=== PATIENT | female | born 1990 | race Caucasian/White ===

== ENCOUNTER → 2017-10-11 | Outpatient (REF) | payer OTHER ==
[~2017-10-11] MED LIST: ACET50TA PO; IBUP-1022 PO; PRENATAL VITAMIN PO
[2017-10-11 17:59] LABS: BASO % 0.6 % (0.0-1.0); EOS % 0.4 % (0.0-3.0); LYMPH # 2.1 10^3/uL (1.5-6.5); LYMPH % 40.5 % (24.0-44.0); MEAN CORPUSCULAR HEMOGLOBIN 29.7 pg (27.0-33.0); MEAN CORPUSCULAR HGB CONC 31.8 g/dl (32.0-36.5); MEAN CORPUSCULAR VOLUME 93.5 fl (80.0-96.0); MONO # 0.2 10^3/uL (0.0-0.8); MONO % 4.3 % (0.0-5.0); NEUTROPHILS # 2.8 10^3/uL (1.8-7.7); NEUTROPHILS % 54.2 % (36.0-66.0); PLATELET COUNT, AUTOMATED 272 10^3/uL (150-450); RED CELL DISTRIBUTION WIDTH 12.7 % (11.5-14.5); WHITE BLOOD COUNT 5.1 10^3/uL (4.0-10.0)
[2017-10-11 18:21] LABS: ALBUMIN 3.7 GM/DL (3.2-5.2); ALBUMIN/GLOBULIN RATIO 1.09 (1.00-1.93); ALKALINE PHOSPHATASE 47 U/L (45-117); ALT/SGPT 14 U/L (12-78); ANION GAP 8 MEQ/L (8-16); AST/SGOT 10 U/L (7-37); BILIRUBIN,TOTAL 0.4 MG/DL (0.2-1.0); BLOOD UREA NITROGEN 10 MG/DL (7-18); CALCIUM LEVEL 8.6 MG/DL (8.5-10.1); CARBON DIOXIDE LEVEL 24 MEQ/L (21-32); CHLORIDE LEVEL 106 MEQ/L (98-107); CHOLESTEROL LEVEL 138 MG/DL (<200); CREATININE FOR GFR 0.72 MG/DL (0.55-1.02); GLOMERULAR FILTRATION RATE > 60.0 (>60); GLUCOSE, FASTING 81 MG/DL (70-105); POTASSIUM SERUM 4.4 MEQ/L (3.5-5.1); SODIUM LEVEL 138 MEQ/L (136-145); TOTAL PROTEIN 7.1 GM/DL (6.4-8.2); TRIGLYCERIDES LEVEL 93 MG/DL (<150)
== END ==
LOC: M SFHCSACK 08:10
PROVIDERS: ATTEND Physician Assistant
DX: Z00.00 Encounter for general adult medical examination without abnormal findings (principal); Z13.29 Encounter for screening for other suspected endocrine disorder; Z13.220 Encounter for screening for lipoid disorders; Z13.21 Encounter for screening for nutritional disorder

== ENCOUNTER → 2017-12-20 | Outpatient (REF) | payer OTHER | LOC: M SFHCSACK 11:46 | DX: J02.9 Acute pharyngitis, unspecified (principal) ==

== ENCOUNTER → 2018-05-29 | Outpatient (CLI) | payer BC, OTHER ==
[2018-05-29 10:50] LABS: BASO % 0.2 % (0.0-1.0); EOS % 0.5 % (0.0-3.0); HEMOGLOBIN 12.6 g/dl (12.0-15.5); IMMATURE GRANULOCYTE % 0.3 % (0-3.0); LYMPH # 2.1 10^3/uL (1.5-6.5); LYMPH % 32.3 % (24.0-44.0); MEAN CORPUSCULAR HEMOGLOBIN 30.5 pg (27.0-33.0); MEAN CORPUSCULAR HGB CONC 33.2 g/dl (32.0-36.5); MONO # 0.4 10^3/uL (0.0-0.8); MONO % 5.7 % (0.0-5.0); PLATELET COUNT, AUTOMATED 268 10^3/uL (150-450); RED BLOOD COUNT 4.13 10^6/uL (4.00-5.40); RED CELL DISTRIBUTION WIDTH 12.6 % (11.5-14.5); WHITE BLOOD COUNT 6.5 10^3/uL (4.0-10.0)
[2018-05-29 12:23] LABS: CHLAMYDIA DNA AMPLIFICATION NEGATIVE (NEGATIVE); GC DNA AMPLIFICATION NEGATIVE (NEGATIVE)
[2018-05-30 09:31] LABS: RUBELLA IgG QUALITATIVE IMMUNE (IMMUNE)
[2018-05-30 09:44] LABS: HBsAg Prenatal NEGATIVE (NEGATIVE)
[2018-05-30 10:00] LABS: HEPATITIS C VIRUS ABY INDEX 0.1 INDEX (<0.8)
[2018-05-30 10:01] LABS: HIV 1&2 SCREEN CENTAUR NEGATIVE (NEGATIVE)
== END ==
LOC: M SMT 08:54
DX: Z36.89 Encounter for other specified antenatal screening (principal); Z3A.08 8 weeks gestation of pregnancy
CPT/HCPCS: 86762

== ENCOUNTER → 2018-07-14 | Outpatient (CLI) | payer BC, OTHER | LOC: M RAD 12:56 | DX: Z34.82 Encounter for supervision of other normal pregnancy, second trimester (principal); Z36.89 Encounter for other specified antenatal screening; Z3A.18 18 weeks gestation of pregnancy | CPT/HCPCS: 76811 ==

== ENCOUNTER → 2018-09-08 | Outpatient (CLI) | payer BC, OTHER ==
[2018-09-08 13:46] LABS: HEMATOCRIT 35.2 % (36.0-47.0); HEMOGLOBIN 11.4 g/dl (12.0-15.5); MEAN CORPUSCULAR HEMOGLOBIN 30.2 pg (27.0-33.0); MEAN CORPUSCULAR HGB CONC 32.4 g/dl (32.0-36.5); MEAN CORPUSCULAR VOLUME 93.4 fl (80.0-96.0); PLATELET COUNT, AUTOMATED 229 10^3/uL (150-450); RED BLOOD COUNT 3.77 10^6/uL (4.00-5.40); RED CELL DISTRIBUTION WIDTH 12.9 % (11.5-14.5); WHITE BLOOD COUNT 9.3 10^3/uL (4.0-10.0)
[2018-09-08 14:14] LABS: GLUCOSE CHALLENGE TEST 1 HOUR 84 MG/DL (LESS THAN 140)
== END ==
LOC: M SMT 08:54
DX: Z34.82 Encounter for supervision of other normal pregnancy, second trimester (principal); Z36.89 Encounter for other specified antenatal screening
CPT/HCPCS: 82950

== ENCOUNTER → 2018-10-29 | Outpatient (CLI) | payer BC, OTHER | LOC: M RAD 15:30 | DX: Z34.83 Encounter for supervision of other normal pregnancy, third trimester (principal); Z87.59 Personal history of other complications of pregnancy, childbirth and the puerperium; Z3A.34 34 weeks gestation of pregnancy | CPT/HCPCS: 76816 ==

== ENCOUNTER → 2018-11-18 | Outpatient (REF) | payer OTHER ==
[~2018-11-18] MED LIST changes: -ACET50TA PO; +MAPA500T17 PO
== END ==
LOC: M LAB REF 17:22
PROVIDERS: ATTEND Advanced Practice Midwife
DX: Z34.83 Encounter for supervision of other normal pregnancy, third trimester (principal)

== ENCOUNTER 2018-12-13 21:00 | Inpatient (IN) | payer BC, OTHER ==
[~2018-12-13] VITALS: Ht 177.8 cm; Wt 93.1 kg
[~2018-12-13 21:00] MED LIST changes: -MAPA500T17 PO; +MAPA500T2 PO
[2018-12-13 21:22] VITALS: BP 113/74
[2018-12-13] MEDS: miSOPROStol 50 MCG 1/2 TAB (S0191) PO SCH (22:13)
[2018-12-13 22:17] LABS: HEMATOCRIT 33.1 % (36.0-47.0); HEMOGLOBIN 10.8 g/dl (12.0-15.5); MEAN CORPUSCULAR HEMOGLOBIN 28.6 pg (27.0-33.0); MEAN CORPUSCULAR HGB CONC 32.6 g/dl (32.0-36.5); MEAN CORPUSCULAR VOLUME 87.8 fl (80.0-96.0); PLATELET COUNT, AUTOMATED 211 10^3/uL (150-450); RED BLOOD COUNT 3.77 10^6/uL (4.00-5.40); WHITE BLOOD COUNT 11.1 10^3/uL (4.0-10.0)
[2018-12-13 22:24] VITALS: BP 112/75
[2018-12-13 23:22] VITALS: BP 118/76
[2018-12-14] VITALS (57 sets, daily range): BP systolic 93–168; BP diastolic 52–126
[2018-12-14] MEDS: miSOPROStol 50 MCG 1/2 TAB (S0191) PO SCH ×2 (02:04→06:37)
--- NOTE | 2018-12-14 08:24 | HPE ---
DATE OF ADMISSION: 12/13/2018 REASON FOR ADMISSION: Induction of labor. HISTORY OF PRESENT ILLNESS: Mrs. Cheney is a 28-year-old, 2, para 1, who presents at 40 weeks 2 days estimated gestational age by her last menstrual period, confirmed by first trimester ultrasound, here for induction of labor. Her course has been remarkable. She initiated care in the first trimester and has been appropriate throughout. PAST MEDICAL HISTORY: None. PAST SURGICAL HISTORY: None. PAST OBSTETRICAL HISTORY: She is 2, para 1. She had a term, uncomplicated vaginal delivery that she is proven to 6 pounds 9 ounces. MEDICATIONS: Include: - vitamins She has NO KNOWN DRUG ALLERGIES. SOCIAL HISTORY: She denies any alcohol, tobacco, or drug use during the . She is and lives at home with her and daughter. PHYSICAL EXAMINATION: Vital signs: Stable. She is afebrile. General appearance: Well-appearing, no acute distress. She has a category 1 rate tracing. Her lungs are clear to auscultation bilaterally. Cardiovascular: Heart regular rate and rhythm. Abdomen is gravid and nontender. Estimated weight (EFW) 3400 grams. Cervical exam: She was 2 cm dilated, 50% effaced, -3 station. LABS: Blood type is A positive. Antibody screen is negative. Rubella is immune. RPR is nonreactive. Hepatitis surface antigen is negative. HIV is negative. Hepatitis C is nonreactive. Chlamydia and gonorrhea screens were negative. She had a normal 1-hour Glucola. She is group B Streptococcus (GBS) negative. ASSESSMENT: 1. Mrs. Cheney is a 28-year-old, 2, para 1, at 40 weeks 2 days estimated gestational age, here for induction of labor. 2. Reassuring status. PLAN: 1. Admit to labor and delivery. Complete blood count (CBC), rapid plasma reagin (RPR), type and screen. 2. Patient has been thoroughly counseled in regards to induction of labor. I discussed the medication as well as procedures performed in labor and delivery. She has also been verbally consented for emergency surgery, blood products, anesthesia and desires to proceed with admission. 3. We will initiate induction in labor with misoprostol.
[2018-12-14] MEDS ORDERED: OXYTOCIN DRIP 30 UNITS in APPROPRIATE DILUENT 1 EA IV SCH ×2 (09:45→19:41)
[2018-12-14] MEDS: LR 1,000 ML IV SCH ×2 (10:40→12:48)
--- NOTE | 2018-12-14 15:57 | NUR ---
L&D Note - Pitocin resumed after prolong decel. Cat 1 tracing currently. vss AF gen: well apearing cx: 2/75/-2, AROM clear and FSE placed A/P: IOL at 40wks reassuring status -continue with pitocin IOL Alessia Ayoub MD
[2018-12-14] MEDS ORDERED: FENTANYL 2MCG/ML ROPIVACAINE 0.2% IN 0.9% NACL 100ML IVBAG As Ordered ONE (16:30)
[2018-12-14] MEDS ORDERED: EPIDURAL COMMENT XX SCH (17:00)
[2018-12-14] MEDS ORDERED: EPIDURAL/PCA KEYS XX PRN (17:00)
[2018-12-14] MEDS ORDERED: diphenhydrAMINE INJ 50MG/ML VIAL (J1200) IV PRN (17:00)
[2018-12-14] MEDS ORDERED: FENTANYL/ROPIVACAINE/NACL BAG 100 ML EPIDURAL SCH (17:00)
[2018-12-14] MEDS ORDERED: NALOXONE INJ 0.4 MG/1 ML VIAL (J2310) IV PRN (17:00)
[2018-12-14] MEDS ORDERED: ONDANSETRON 4MG/2ML VIAL (J2405) IV PRN ×2 (17:00→19:45)
[2018-12-14] MEDS ORDERED: REFRIGERATOR IV KEYS XX PRN (17:00)
[2018-12-14] MEDS ORDERED: LACTATED RINGER'S 1000 ML IV PRN (17:00)
[2018-12-14] MEDS ORDERED: ePHEDrine SULFATE 25 MG/5 ML(5MG/ML) SYRINGE IV PRN (17:00)
[2018-12-14] MEDS ORDERED: MOM 30ML SUSPENSION UDC PO PRN (19:45)
[2018-12-14] MEDS ORDERED: ANUSOL HC CREAM 30GM TOP PRN (19:45)
[2018-12-14] MEDS ORDERED: DIBUCAINE 1% OINTMENT 30GM TOP PRN (19:45)
[2018-12-14] MEDS ORDERED: MEASLES,MUMPS,RUBELLA VACCINE INJ (MMR-II) (90707) SC SCH (19:45)
[2018-12-14] MEDS ORDERED: ACETAMINOPHEN 500 MG TAB PO PRN (19:45)
[2018-12-14] MEDS ORDERED: METHYLERGONOVINE MALEATE 0.2 MG TAB PO PRN (19:45)
[2018-12-14] MEDS ORDERED: DOCUSATE SODIUM 100 MG CAP PO PRN (19:45)
[2018-12-14] MEDS ORDERED: RHOGAM 300 MCG (1500 IU) INJ (J2790) IM SCH (19:45)
[2018-12-14] MEDS: IBUPROFEN 800 MG TAB PO PRN (21:33)
[2018-12-15] MEDS: IBUPROFEN 800 MG TAB PO PRN ×2 (05:33→14:43)
[2018-12-15 05:37] VITALS: BP 123/73
--- NOTE | 2018-12-15 06:40 | DN ---
DATE OF DELIVERY: 12/14/2018 TIME OF : 1910 GENDER: Male : 8 and 10 WEIGHT: 3690 grams, 8 pounds 2 ounces. ANESTHESIA: Epidural. LACERATIONS: None. ESTIMATED BLOOD LOSS: 300 mL. COUNTS: Five laparotomy sponges accounted to prior to and after delivery. DELIVERY NOTE: On 12/14/2018 at 1911, Mrs. Cheney, a 28-year-old 2 now para 2 had a spontaneous vaginal delivery of a live born male infant, 8 and 10, weight was 3690 grams or 8 pounds 2 ounces. Head was delivered OA over intact perineum. There was a nuchal cord which was manually reduced followed by delivery of shoulders and corpus. Infant was handed to mother with good cry. Cord was then clamped times two. It was cut by the father of the baby under my direction. Placenta was then drained and delivered grossly intact. A premixed bag of 50 mL of normal saline with 30 units of Pitocin was then bolused along with uterine massage. The uterus was firm. On inspection, the cervix, vagina, perineum was grossly intact and hemostatic. Mother and baby recovering in stable condition. The couple decided to name their son
--- NOTE | 2018-12-15 07:41 | NUR ---
PPD#1 S: Doing well w/o complaints. Decreasing lochia, pain well control, + voids and + BF. O: vss, AF Gen: well appearing abd: soft, nttp with ff@u-1 A/P: PPD#1 s/p - stable -continue routine care -d/c plans for tomorrow Alessia Ayoub MD
[2018-12-15] MEDS: PRENATAL VITAMINS CHEWABLE TABLET PO SCH (09:00)
[2018-12-15 13:50] VITALS: BP 126/82
[2018-12-15 18:15] VITALS: BP 122/75
[2018-12-16 05:50] VITALS: BP 114/78
[2018-12-16] MEDS: PRENATAL VITAMINS CHEWABLE TABLET PO SCH (07:47)
[2018-12-16] MEDS: IBUPROFEN 800 MG TAB PO PRN (12:24)
== END 2018-12-16 14:40 | disposition home or self-care (01) | DRG 560 ==
LOC: M LDI 21:00 → M OBS 12-15 13:50
PROVIDERS: ADMIT Obstetrics & Gynecology; ATTEND Obstetrics & Gynecology
PROC: 3E0P7GC Introduction of Other Therapeutic Substance into Female Reproductive, Via Natural or Artificial Opening (ICD-10-PCS; 2018-12-13)
PROC: 10E0XZZ Delivery of Products of Conception, External Approach (ICD-10-PCS; principal; 2018-12-14)
DX: O48.0 Post-term pregnancy (principal); Z3A.40 40 weeks gestation of pregnancy; O69.81X0 Labor and delivery complicated by cord around neck, without compression, not applicable or unspecified; Z37.0 Single live birth

== ENCOUNTER → 2019-03-24 | Outpatient (REF) | payer OTHER | LOC: M LAB REF 09:01 | PROVIDERS: ATTEND Obstetrics & Gynecology | DX: Z12.4 Encounter for screening for malignant neoplasm of cervix (principal) ==

== ENCOUNTER → 2019-06-17 | Outpatient (CLI) | payer BC, OTHER ==
--- NOTE | 2019-06-17 14:20 | REP ---
PA and lateral chest: There are no comparisons. The lung singh are clear. The cardiac size is normal. The monique, mediastinum, and skeletal structures are unremarkable. Impression: Negative PA and lateral chest. Electronically Signed by Denys Hernández MD 06/17/2019 02:12 P
== END ==
LOC: M WUC 13:24
PROVIDERS: ATTEND Physician Assistant
DX: R05 Cough (principal)

== ENCOUNTER → 2019-07-27 | Outpatient (CLI) | payer BC, OTHER ==
[2019-07-27 13:30] LABS: BASO % 0.3 % (0.0-1.0); EOS % 0.5 % (0.0-3.0); HEMATOCRIT 37.2 % (36.0-47.0); HEMOGLOBIN 11.9 g/dl (12.0-15.5); LYMPH # 2.3 10^3/uL (1.5-6.5); LYMPH % 30.1 % (24.0-44.0); MEAN CORPUSCULAR HEMOGLOBIN 29.5 pg (27.0-33.0); MEAN CORPUSCULAR VOLUME 92.1 fl (80.0-96.0); MONO # 0.4 10^3/uL (0.0-0.8); MONO % 5.1 % (0.0-5.0); NEUTROPHILS # 4.8 10^3/uL (1.8-7.7); NEUTROPHILS % 63.7 % (36.0-66.0); PLATELET COUNT, AUTOMATED 258 10^3/uL (150-450); RED BLOOD COUNT 4.04 10^6/uL (4.00-5.40); WHITE BLOOD COUNT 7.5 10^3/uL (4.0-10.0)
[2019-07-27 13:37] LABS: BLOOD UREA NITROGEN 8 MG/DL (7-18); GLOMERULAR FILTRATION RATE > 60.0 (>60); GLUCOSE, FASTING 94 MG/DL (70-100); SODIUM LEVEL 141 MEQ/L (136-145)
[2019-07-27 13:38] LABS: ALBUMIN 3.6 GM/DL (3.2-5.2); ALT/SGPT 13 U/L (12-78); BILIRUBIN,TOTAL 0.5 MG/DL (0.2-1.0); CALCIUM LEVEL 8.5 MG/DL (8.5-10.1); CARBON DIOXIDE LEVEL 26 MEQ/L (21-32); CHLORIDE LEVEL 107 MEQ/L (98-107); CHOLESTEROL LEVEL 135 MG/DL (<200); CHOLESTEROL RISK RATIO 2.368 (<5); FREE T4 0.86 NG/DL (0.76-1.46); HDL CHOLESTEROL 57 MG/DL (>40); LDL CHOLESTEROL 60 MG/DL (<100); NON-HDL-C 78 MG/DL; POTASSIUM SERUM 4.1 MEQ/L (3.5-5.1); TOTAL PROTEIN 6.6 GM/DL (6.4-8.2); TRIGLYCERIDES LEVEL 89 MG/DL (<150)
== END ==
LOC: M SMT 08:46
PROVIDERS: ATTEND Physician Assistant
DX: Z13.21 Encounter for screening for nutritional disorder (principal); Z13.220 Encounter for screening for lipoid disorders; Z13.29 Encounter for screening for other suspected endocrine disorder

== ENCOUNTER → 2019-10-17 | Outpatient (REF) | payer OTHER | LOC: M LAB REF 10:57 | PROVIDERS: ATTEND Physician Assistant | DX: J02.9 Acute pharyngitis, unspecified (principal) ==

== ENCOUNTER → 2022-01-20 | Outpatient (CLI) | payer BC, OTHER ==
[2022-01-20 08:28] LABS: BASO % 0.2 % (0.0-1.0); EOS % 0.6 % (0.0-3.0); HEMATOCRIT 39.8 % (36.0-47.0); HEMOGLOBIN 12.8 g/dl (12.0-15.5); LYMPH # 1.8 10^3/uL (1.5-5.0); LYMPH % 27.9 % (24.0-44.0); MEAN CORPUSCULAR HEMOGLOBIN 30.5 pg (27.0-33.0); MEAN CORPUSCULAR HGB CONC 32.2 g/dl (32.0-36.5); MEAN CORPUSCULAR VOLUME 94.8 fl (80.0-96.0); MONO # 0.4 10^3/uL (0.0-0.8); MONO % 5.6 % (2.0-8.0); NEUTROPHILS # 4.2 10^3/uL (1.5-8.5); NEUTROPHILS % 65.5 % (36.0-66.0); PLATELET COUNT, AUTOMATED 289 10^3/uL (150-450); WHITE BLOOD COUNT 6.5 10^3/uL (4.0-10.0)
[2022-01-20 09:09] LABS: ALT/SGPT 14 U/L (12-78); BILIRUBIN,TOTAL 0.5 MG/DL (0.2-1.0); BLOOD UREA NITROGEN 12 MG/DL (7-18); CALCIUM LEVEL 9.3 MG/DL (8.5-10.1); CARBON DIOXIDE LEVEL 26 MEQ/L (21-32); CHLORIDE LEVEL 108 MEQ/L (98-107); CHOLESTEROL LEVEL 146 MG/DL (<200); CHOLESTEROL RISK RATIO 2.115 (<5); CREATININE FOR GFR 0.67 MG/DL (0.55-1.30); FERRITIN 75 NG/ML (8-252); GLOMERULAR FILTRATION RATE > 60.0 (>60); GLUCOSE, FASTING 96 MG/DL (70-100); HDL CHOLESTEROL 69 MG/DL (>40); LDL CHOLESTEROL 68 MG/DL (<100); NON-HDL-C 77 MG/DL; POTASSIUM SERUM 4.6 MEQ/L (3.5-5.1); SODIUM LEVEL 142 MEQ/L (136-145); THYROID STIMULATING HORMONE 0.886 uIU/ML (0.358-3.740); TOTAL PROTEIN 7.3 GM/DL (6.4-8.2); TRIGLYCERIDES LEVEL 47 MG/DL (<150)
[2022-01-22 11:52] LABS: VITAMIN B12 LEVEL 549 PG/ML (247-911)
== END ==
LOC: M LAB 08:07
PROVIDERS: ATTEND Family Medicine
DX: Z13.29 Encounter for screening for other suspected endocrine disorder (principal)

== ENCOUNTER → 2023-07-17 | Outpatient (REF) | payer BC, OTHER | LOC: M LAB REF 11:25 | PROVIDERS: ATTEND Nurse Practitioner Family | DX: J02.9 Acute pharyngitis, unspecified (principal) ==

== ENCOUNTER → 2024-01-24 | Outpatient (REF) | payer OTHER | LOC: M SFHCWAGY 09:45 | PROVIDERS: ATTEND Nurse Practitioner Family | DX: Z12.4 Encounter for screening for malignant neoplasm of cervix (principal) ==